=== PATIENT | male | born 1985 | race Two or more races ===

== ENCOUNTER 2018-11-06 09:38 | Emergency (ER) | payer SELFPAY ==
[~2018-11-06] VITALS: Ht 182.9 cm; Wt 90.9 kg
[2018-11-06 09:41] VITALS: BP 149/95
== END 2018-11-06 09:54 | disposition home or self-care (01) ==
LOC: ER 09:41
DX: S00.81XA Abrasion of other part of head, initial encounter (principal); Z91.19 Patient's noncompliance with other medical treatment and regimen; Y35.811A Legal intervention involving manhandling, law enforcement official injured, initial encounter; Y93.89 Activity, other specified; Y92.89 Other specified places as the place of occurrence of the external cause; Y99.8 Other external cause status
CPT/HCPCS: 99283

== ENCOUNTER 2022-03-18 07:14 | Emergency (ER) | payer MEDICAID ==
[~2022-03-18] VITALS: Ht 182.9 cm; Wt 90.9 kg
[2022-03-18 07:15] VITALS: BP 172/103
[2022-03-18] MEDS ORDERED: HYDR-3972 PO (11:50)
== END 2022-03-18 12:12 | disposition home or self-care (01) ==
LOC: ER 07:15
DX: M54.50 Low back pain, unspecified (principal)
CPT/HCPCS: 72100; 99283

== ENCOUNTER 2023-01-03 03:59 | Emergency (ER) | payer MEDICAID ==
[~2023-01-03] VITALS: Ht 182.9 cm; Wt 108.9 kg
[2023-01-03 04:05] VITALS: BP 149/107
[2023-01-03] MEDS ORDERED: azithromycin 250mg tablet PO ONE (04:35)
[2023-01-03] MEDS ORDERED: CefTRIAXone 1000mg IM Kit (w/lidocaine diluent) IM ONE (04:35)
== END 2023-01-03 04:54 | disposition home or self-care (01) ==
LOC: ER 04:00
DX: A63.8 Other specified predominantly sexually transmitted diseases (principal)
CPT/HCPCS: 96372; 99283; J0696

== ENCOUNTER 2023-04-04 01:03 | Emergency (ER) | payer MEDICAID ==
[~2023-04-04] VITALS: Ht 185.4 cm; Wt 93.2 kg
[2023-04-04 02:18] LABS: BASOPHILS # (AUTO) 0.1 X10'3 (0-0.2); BASOPHILS % (AUTO) 0.3 % (0-1); EOSINOPHILS % (AUTO) 0.3 % (0-6); HEMATOCRIT 36.9 % (42.0-52.0); HEMOGLOBIN 12.1 g/dl (14.0-17.9); LYMPHOCYTES # (AUTO) 1.7 X10'3 (1.1-4.8); LYMPHOCYTES % (AUTO) 11.2 % (21-51); MEAN CORPUSCULAR HEMOGLOBIN 26.6 PG (27.0-31.0); MEAN CORPUSCULAR HGB CONC 32.8 g/dL (33.0-36.5); MEAN CORPUSCULAR VOLUME 80.9 FL (78-98); MEAN PLATELET VOLUME 6.8 FL (7.4-10.4); MONOCYTES # (AUTO) 1.5 X10'3 (0-0.9); MONOCYTES % (AUTO) 9.9 % (2-12); NEUTROPHILS # (AUTO) 12.2 X10'3 (1.8-7.7); NEUTROPHILS % (AUTO) 78.3 % (42-75); PLATELET COUNT 318 X10'3 (140-440); RED BLOOD COUNT 4.57 X10'6 (4.70-6.10); RED CELL DISTRIBUTION WIDTH 14.3 % (11.5-14.5); WHITE BLOOD COUNT 15.6 X10'3 (4.5-11.0)
[2023-04-04 02:29] LABS: ALANINE AMINOTRANSFERASE 30 U/L (12-78); ALBUMIN 3.4 G/DL (3.4-5.0); ALBUMIN/GLOBULIN RATIO 0.7 (1.1-1.5); ALKALINE PHOSPHATASE 54 IU/L (46-116); ANION GAP 9 (8-16); ASPARTATE AMINO TRANSFERASE 16 U/L (10-37); BILIRUBIN,TOTAL 0.6 MG/DL (0.1-1.0); BLOOD UREA NITROGEN 12 MG/DL (7-18); BUN/CREATININE RATIO 9.6 (10.0-20.0); CALCIUM 8.8 MG/DL (8.5-10.1); CHLORIDE 100 MMOL/L (99-107); CREATININE 1.25 MG/DL (0.60-1.10); GLUCOSE 177 MG/DL (70-104); MAGNESIUM 1.6 MG/DL (1.5-2.4); POTASSIUM 3.6 MMOL/L (3.5-5.1); SODIUM 137 MMOL/L (135-145); TOTAL CARBON DIOXIDE 28.5 MMOL/L (24-32); eGFR 65 ML/MIN
[2023-04-04 06:46] VITALS: BP 156/89; PULSE 102; RESP 16; TEMP 99; O2SAT 99
[2023-04-05] MEDS ORDERED: NO HOME MEDS (19:06)
== END 2023-04-04 10:28 | disposition left against medical advice (07) ==
LOC: ER 01:04
DX: T24.001A Burn of unspecified degree of unspecified site of right lower limb, except ankle and foot, initial encounter (principal); R30.9 Painful micturition, unspecified; Z53.21 Procedure and treatment not carried out due to patient leaving prior to being seen by health care provider; X10.1XXA Contact with hot food, initial encounter; Y93.89 Activity, other specified; Y92.89 Other specified places as the place of occurrence of the external cause; Y99.8 Other external cause status
CPT/HCPCS: 36415; 80053; 83605; 83735; 84145; 85025; 87040; 99281

== ENCOUNTER 2023-04-05 14:47 | Inpatient (IN) | payer MEDICAID ==
[~2023-04-05] VITALS: Ht 182.9 cm; Wt 90.9 kg
[2023-04-05] MEDS ORDERED: piperacillin/tazo 3.375gm/50ml 50 ML IV ONE (15:45)
[2023-04-05 16:51] LABS: HEMOGLOBIN 11.8 g/dl (14.0-17.9)
[2023-04-05 16:52] LABS: BASOPHILS % (AUTO) 0.2 % (0-1); EOSINOPHILS # (AUTO) 0.2 X10'3 (0-0.9); HEMATOCRIT 35.8 % (42.0-52.0); LYMPHOCYTES # (AUTO) 0.8 X10'3 (1.1-4.8); LYMPHOCYTES % (AUTO) 3.9 % (21-51); MEAN CORPUSCULAR HEMOGLOBIN 26.6 PG (27.0-31.0); MEAN CORPUSCULAR HGB CONC 33.1 g/dL (33.0-36.5); MEAN CORPUSCULAR VOLUME 80.5 FL (78-98); MEAN PLATELET VOLUME 7.1 FL (7.4-10.4); MONOCYTES # (AUTO) 1.4 X10'3 (0-0.9); NEUTROPHILS # (AUTO) 17.3 X10'3 (1.8-7.7); NEUTROPHILS % (AUTO) 87.9 % (42-75); PLATELET COUNT 298 X10'3 (140-440); RED BLOOD COUNT 4.45 X10'6 (4.70-6.10); WHITE BLOOD COUNT 19.7 X10'3 (4.5-11.0)
[2023-04-05 17:00] LABS: ALANINE AMINOTRANSFERASE 49 U/L (12-78); ALBUMIN 2.8 G/DL (3.4-5.0); ALBUMIN/GLOBULIN RATIO 0.6 (1.1-1.5); ALKALINE PHOSPHATASE 98 IU/L (46-116); ANION GAP 10 (8-16); ASPARTATE AMINO TRANSFERASE 47 U/L (10-37); BILIRUBIN,TOTAL 3.2 MG/DL (0.1-1.0); BLOOD UREA NITROGEN 9 MG/DL (7-18); BUN/CREATININE RATIO 8.8 (10.0-20.0); CALCIUM 8.6 MG/DL (8.5-10.1); CHLORIDE 97 MMOL/L (99-107); CREATININE 1.02 MG/DL (0.60-1.10); GLUCOSE 138 MG/DL (70-104); MAGNESIUM 1.6 MG/DL (1.5-2.4); POTASSIUM 3.8 MMOL/L (3.5-5.1); SODIUM 133 MMOL/L (135-145); TOTAL PROTEIN 7.6 G/DL (6.4-8.2); eGFR 83 ML/MIN
[2023-04-05] MEDS ORDERED: iohexol 300mg/ml 100ml inj. ONE (17:20)
[2023-04-05 17:40] LABS: ETHANOL < 10 MG/DL (<10)
[2023-04-05] MEDS ORDERED: magnesium 2GM in 50ml NS 50 ML IV PRN (17:50)
[2023-04-05] MEDS ORDERED: acetaminophen 325mg tablet PO PRN ×2 (17:50)
[2023-04-05] MEDS ORDERED: morphine 2 MG/ML inj. syringe IV PRN ×2 (17:50)
[2023-04-05] MEDS ORDERED: HYDROcodone/acetaminophen 5mg/325mg tablet PO PRN (17:50)
[2023-04-05] MEDS ORDERED: magnesium Cl slow-release 64mg tablet PO PRN (17:50)
[2023-04-05] MEDS ORDERED: magnesium 4gm in 100ml NS 100 ML IV PRN (17:50)
[2023-04-05] MEDS ORDERED: potassium Cl 20 mEq SR tablet PO PRN ×2 (17:50)
[2023-04-05] MEDS ORDERED: potassium Cl 40MEQ/1/2NS 520ml 520 ML IV PRN (17:50)
[2023-04-05] MEDS ORDERED: magnesium hydroxide 30ml (MOM) UD suspension PO PRN (17:50)
[2023-04-05] MEDS ORDERED: ondansetron/PF 4mg/2ml inj IV PRN (17:50)
[2023-04-05] MEDS: normal saline 1000ml 1,000 ML IV SCH (18:04)
[2023-04-05 18:46] LABS: C-REACTIVE PROTEIN 27.81 MG/DL (0.0-0.5)
[2023-04-05] MEDS: VANCOmycin 1250MG/NS 250ml Bag 250 ML IV SCH (19:00)
[2023-04-05] MEDS ORDERED: NO HOME MEDS (19:06)
[2023-04-05] MEDS ORDERED: nicotine 21mg patch - 24 hr TD ONE (19:20)
[2023-04-05 19:41] LABS: URINE AMPHETAMINE SCREEN POSITIVE (Neg); URINE BARBITUATE SCREEN NEGATIVE (Neg); URINE BENZODIAZEPINES SCREEN NEGATIVE (Neg); URINE CANNABINOID SCREEN NEGATIVE (Neg); URINE COCAINE SCREEN NEGATIVE (Neg); URINE METHADONE SCREEN NEGATIVE (Neg); URINE OPIATE SCREEN NEGATIVE (Neg); URINE PHENCYCLIDINE SCREEN NEGATIVE (Neg)
[2023-04-05] MEDS: enoxaparin 40mg/0.4ml syringe SQ SCH (20:36)
[2023-04-05] MEDS ORDERED: acetaminophen 1,000mg/100ml IV 100 ML IV ONE (21:00)
--- NOTE | 2023-04-06 04:00 | NUR ---
reposition pt for comfort, gave warm blankets and a pillow, pend admit
[2023-04-06] MEDS: HYDROcodone/acetaminophen 10/325mg tab PO PRN (04:01)
[2023-04-06] MEDS: normal saline 1000ml 1,000 ML IV SCH ×3 (06:53→20:26)
[2023-04-06] MEDS: VANCOmycin 1250MG/NS 250ml Bag 250 ML IV SCH (07:47)
[2023-04-06 08:00] LABS: BASOPHILS % (AUTO) 0.1 % (0-1); EOSINOPHILS % (AUTO) 0.2 % (0-6); HEMATOCRIT 33.8 % (42.0-52.0); HEMOGLOBIN 11.2 g/dl (14.0-17.9); LYMPHOCYTES # (AUTO) 0.8 X10'3 (1.1-4.8); LYMPHOCYTES % (AUTO) 3.7 % (21-51); MEAN CORPUSCULAR HEMOGLOBIN 26.4 PG (27.0-31.0); MEAN CORPUSCULAR HGB CONC 33.1 g/dL (33.0-36.5); MEAN CORPUSCULAR VOLUME 79.7 FL (78-98); MEAN PLATELET VOLUME 7.3 FL (7.4-10.4); MONOCYTES # (AUTO) 1.3 X10'3 (0-0.9); MONOCYTES % (AUTO) 5.7 % (2-12); NEUTROPHILS # (AUTO) 20.3 X10'3 (1.8-7.7); NEUTROPHILS % (AUTO) 90.3 % (42-75); PLATELET COUNT 287 X10'3 (140-440); RED BLOOD COUNT 4.24 X10'6 (4.70-6.10); RED CELL DISTRIBUTION WIDTH 14.2 % (11.5-14.5); WHITE BLOOD COUNT 22.5 X10'3 (4.5-11.0)
[2023-04-06 08:38] LABS: ALANINE AMINOTRANSFERASE 89 U/L (12-78); ALBUMIN 2.5 G/DL (3.4-5.0); ALKALINE PHOSPHATASE 164 IU/L (46-116); ANION GAP 14 (8-16); ASPARTATE AMINO TRANSFERASE 95 U/L (10-37); BILIRUBIN,TOTAL 4.5 MG/DL (0.1-1.0); BLOOD UREA NITROGEN 12 MG/DL (7-18); BUN/CREATININE RATIO 12.1 (10.0-20.0); CALCIUM 8.1 MG/DL (8.5-10.1); CHLORIDE 102 MMOL/L (99-107); CREATININE 0.99 MG/DL (0.60-1.10); GLUCOSE 141 MG/DL (70-104); POTASSIUM 3.7 MMOL/L (3.5-5.1); SODIUM 138 MMOL/L (135-145); TOTAL CARBON DIOXIDE 22.3 MMOL/L (24-32); eGFR 86 ML/MIN
[2023-04-06 08:53] LABS: ALBUMIN/GLOBULIN RATIO 0.6 (1.1-1.5)
--- NOTE | 2023-04-06 15:22 | NUR ---
ATTEMPTED TO CALL REPORT, NURSE NOT AVAILABLE AT THIS TIME. CRN NOTIFIED.
[2023-04-06] MEDS: vancomycin/NS 1 GM ADD-VANTAGE 250 ML IV SCH ×3 (15:51→23:15)
--- NOTE | 2023-04-06 16:20 | NUR ---
Patient in room ED 12. I have received report from Brandon ZAVALA from ER and had the opportunity to ask questions and assume patient care.
--- NOTE | 2023-04-06 16:25 | NUR ---
PAGER ID: [phone] MESSAGE: [id number]-Katt Solano- patient is on day 3 of last drink. Drinks 750ML of whiskey daily. No ETOH protocol in. Pls advise? KEHINDE Rodriguez [phone]
--- NOTE | 2023-04-06 16:35 | NUR ---
Dr. Tao visited patient today once he got to the floor. Per Dr. Tao patient is able to eat clear liquids for breakfast and then NPO after that. Patient will go into surgery tomorrow late afternoon. Consent in patient chart.
--- NOTE | 2023-04-06 16:45 | NUR ---
Offered patient something to eat and patient states that he isn't hungry but will take water.
[2023-04-06] MEDS ORDERED: dextrose 50%-water 50ml dispensing syringe IV PRN (17:05)
[2023-04-06] MEDS ORDERED: haloperidol 5mg tablet PO PRN (17:05)
[2023-04-06] MEDS ORDERED: haloperidol lactate 5mg/ml inj IM PRN (17:05)
[2023-04-06] MEDS ORDERED: LORazepam 2 mg/ml vial IV PRN (17:05)
--- NOTE | 2023-04-06 17:58 | NUR ---
patient refused dinner
[2023-04-06 18:00] VITALS: BP 113/71; PULSE 85; RESP 16; TEMP 98.5; O2SAT 99
--- NOTE | 2023-04-06 18:30 | NUR ---
Patient in room ORTHO 4010. I have received report from Jennifer MCELROY and had the opportunity to ask questions and assume patient care.
--- NOTE | 2023-04-06 18:36 | NUR ---
Problems reprioritized. Patient report given, questions answered & plan of care reviewed with Sherice ZAVALA.
[2023-04-06 19:30] VITALS: RESP 16; O2SAT 99
[2023-04-06] MEDS: thiamine 100mg/ml 2ml inj. IV SCH (20:27)
[2023-04-06] MEDS: enoxaparin 40mg/0.4ml syringe SQ SCH (20:27)
[2023-04-06 22:00] VITALS: BP 124/63; PULSE 64; RESP 18; TEMP 97.9; O2SAT 98
[2023-04-07] VITALS (18 sets, daily range): BP systolic 127–148; BP diastolic 60–90; PULSE 50–82; RESP 14–25; TEMP 97.3–98.6; O2SAT 95–99
[2023-04-07] MEDS: HYDROcodone/acetaminophen 10/325mg tab PO PRN (03:11)
--- NOTE | 2023-04-07 06:50 | NUR ---
Problems reprioritized. Patient report given, questions answered & plan of care reviewed with More ZAVALA.
--- NOTE | 2023-04-07 06:51 | NUR ---
Patient in room ORTH[facility] 4010. I have received report from Sherice and had the opportunity to ask questions and assume patient care.
[2023-04-07 07:06] LABS: BASOPHILS % (AUTO) 0.1 % (0-1); EOSINOPHILS # (AUTO) 0.1 X10'3 (0-0.9); EOSINOPHILS % (AUTO) 0.6 % (0-6); HEMATOCRIT 34.9 % (42.0-52.0); HEMOGLOBIN 11.5 g/dl (14.0-17.9); LYMPHOCYTES # (AUTO) 1.7 X10'3 (1.1-4.8); LYMPHOCYTES % (AUTO) 8.6 % (21-51); MEAN CORPUSCULAR HEMOGLOBIN 26.5 PG (27.0-31.0); MEAN CORPUSCULAR VOLUME 80.1 FL (78-98); MEAN PLATELET VOLUME 7.6 FL (7.4-10.4); MONOCYTES # (AUTO) 1.2 X10'3 (0-0.9); MONOCYTES % (AUTO) 6.1 % (2-12); NEUTROPHILS # (AUTO) 16.2 X10'3 (1.8-7.7); NEUTROPHILS % (AUTO) 84.6 % (42-75); PLATELET COUNT 342 X10'3 (140-440); RED BLOOD COUNT 4.35 X10'6 (4.70-6.10); RED CELL DISTRIBUTION WIDTH 14.5 % (11.5-14.5); WHITE BLOOD COUNT 19.2 X10'3 (4.5-11.0)
[2023-04-07] MEDS: thiamine 100mg/ml 2ml inj. IV SCH ×3 (07:16→22:00)
[2023-04-07] MEDS: folic acid 1mg/0.2ml inj IV SCH (07:16)
[2023-04-07] MEDS: vancomycin/NS 1 GM ADD-VANTAGE 250 ML IV SCH (07:49)
[2023-04-07 07:50] LABS: ALANINE AMINOTRANSFERASE 177 U/L (12-78); ALBUMIN 2.4 G/DL (3.4-5.0); ALBUMIN/GLOBULIN RATIO 0.5 (1.1-1.5); ALKALINE PHOSPHATASE 221 IU/L (46-116); ANION GAP 14 (8-16); ASPARTATE AMINO TRANSFERASE 202 U/L (10-37); BILIRUBIN,TOTAL 4.1 MG/DL (0.1-1.0); BLOOD UREA NITROGEN 15 MG/DL (7-18); BUN/CREATININE RATIO 16.1 (10.0-20.0); CALCIUM 8.7 MG/DL (8.5-10.1); CHLORIDE 103 MMOL/L (99-107); CREATININE 0.93 MG/DL (0.60-1.10); GLUCOSE 96 MG/DL (70-104); POTASSIUM 3.5 MMOL/L (3.5-5.1); SODIUM 138 MMOL/L (135-145); TOTAL PROTEIN 7.3 G/DL (6.4-8.2); eGFR > 90 ML/MIN
[2023-04-07] MEDS: linezolid 600mg tablet PO SCH ×2 (13:17→19:38)
[2023-04-07] MEDS ORDERED: VANCOMYCIN LEVEL IV ONE (14:30)
[2023-04-07] MEDS: cefazolin 2gm/D5W 100mL 100 ML IV SCH (16:15)
--- NOTE | 2023-04-07 17:28 | NUR ---
Pt to OR
[2023-04-07] MEDS ORDERED: fentaNYL/PF 50MCG/1 ML 2ML syringe ONE (17:51)
[2023-04-07] MEDS ORDERED: propofol inj 20 ML IV ONE (17:51)
[2023-04-07] MEDS ORDERED: midazolam 1 mg/ML 2ml injection ONE (17:51)
--- NOTE | 2023-04-07 17:57 | NUR ---
Patient at bedside with Dr. Hannon and OR nurse. RN performed time-out. VSS. OR tech prep site and no s/s of distress at this time. Will keep monitoring.
--- NOTE | 2023-04-07 18:09 | NUR ---
Received report given by Riddhi Anesthesiologist. PATIENT A&OX4, DENIES PAIN, V/S WNL, PIV 18G Right AC, RIGHT LOWER LEG DRESSING C/D/I. Addendum: 04/07/23 at 1823 by Ron Yee RN Amended: Links added.
[2023-04-07] MEDS ORDERED: meperidine/PF 25mg/ml syringe IV PRN ×2 (18:20)
[2023-04-07] MEDS ORDERED: morphine 2 MG/ML inj. syringe IV PRN (18:20)
[2023-04-07] MEDS ORDERED: morphine 4 MG/ML inj SYRINge IV PRN (18:20)
--- NOTE | 2023-04-07 18:33 | NUR ---
Problems reprioritized. Patient report given, questions answered & plan of care reviewed with
--- NOTE | 2023-04-07 18:49 | NUR ---
PATIENT HAS MET ALL CRITERIA FOR TRANSFER TO ORTHO FLOOR. VSS. DRESSINGS INTACT. BED LOW, CALL LIGHT PRESENT AND 2 RAILS UP. RN PRESENT TO ACCEPT CARE OF PATIENT AND REPORT HAS BEEN CALLED. ALL QUESTIONS ANSWERED TO ACCEPTING RN. Addendum: 04/07/23 at 1855 by Ron Yee RN Amended: Links added.
[2023-04-07] MEDS: enoxaparin 40mg/0.4ml syringe SQ SCH (19:39)
[2023-04-07] MEDS: normal saline 1000ml 1,000 ML IV SCH (20:30)
[2023-04-08] VITALS (7 sets, daily range): BP systolic 137–171; BP diastolic 65–82; PULSE 41–65; RESP 16–18; TEMP 98–98.9; O2SAT 96–100
[2023-04-08] MEDS: cefazolin 2gm/D5W 100mL 100 ML IV SCH ×3 (00:31→16:47)
[2023-04-08] MEDS: normal saline 1000ml 1,000 ML IV SCH ×3 (00:32→16:46)
--- NOTE | 2023-04-08 06:10 | NUR ---
Patient in room ORTHO 4010. I have received report from Esme and had the opportunity to ask questions and assume patient care.
--- NOTE | 2023-04-08 06:40 | NUR ---
Problems reprioritized. Patient report given, questions answered & plan of care reviewed with MODESTO ZAVALA.
[2023-04-08 07:10] LABS: BASOPHILS # (AUTO) 0.1 X10'3 (0-0.2); BASOPHILS % (AUTO) 0.4 % (0-1); EOSINOPHILS # (AUTO) 0.3 X10'3 (0-0.9); EOSINOPHILS % (AUTO) 1.8 % (0-6); HEMATOCRIT 32.2 % (42.0-52.0); HEMOGLOBIN 10.6 g/dl (14.0-17.9); LYMPHOCYTES # (AUTO) 3.1 X10'3 (1.1-4.8); LYMPHOCYTES % (AUTO) 18.6 % (21-51); MEAN CORPUSCULAR HEMOGLOBIN 26.3 PG (27.0-31.0); MEAN CORPUSCULAR HGB CONC 32.8 g/dL (33.0-36.5); MEAN CORPUSCULAR VOLUME 80.2 FL (78-98); MEAN PLATELET VOLUME 7.7 FL (7.4-10.4); MONOCYTES # (AUTO) 1.3 X10'3 (0-0.9); MONOCYTES % (AUTO) 7.7 % (2-12); NEUTROPHILS # (AUTO) 11.9 X10'3 (1.8-7.7); NEUTROPHILS % (AUTO) 71.5 % (42-75); PLATELET COUNT 351 X10'3 (140-440); RED BLOOD COUNT 4.02 X10'6 (4.70-6.10); RED CELL DISTRIBUTION WIDTH 14.4 % (11.5-14.5); WHITE BLOOD COUNT 16.7 X10'3 (4.5-11.0)
[2023-04-08 07:36] LABS: ALANINE AMINOTRANSFERASE 186 U/L (12-78); ALBUMIN 2.1 G/DL (3.4-5.0); ALBUMIN/GLOBULIN RATIO 0.4 (1.1-1.5); ALKALINE PHOSPHATASE 224 IU/L (46-116); ANION GAP 14 (8-16); ASPARTATE AMINO TRANSFERASE 140 U/L (10-37); BILIRUBIN,TOTAL 2.5 MG/DL (0.1-1.0); BLOOD UREA NITROGEN 18 MG/DL (7-18); BUN/CREATININE RATIO 16.5 (10.0-20.0); CALCIUM 8.1 MG/DL (8.5-10.1); CHLORIDE 104 MMOL/L (99-107); CREATININE 1.09 MG/DL (0.60-1.10); GLUCOSE 101 MG/DL (70-104); POTASSIUM 3.4 MMOL/L (3.5-5.1); SODIUM 139 MMOL/L (135-145); TOTAL CARBON DIOXIDE 20.7 MMOL/L (24-32); TOTAL PROTEIN 6.8 G/DL (6.4-8.2); eGFR 77 ML/MIN
[2023-04-08] MEDS: linezolid 600mg tablet PO SCH ×2 (09:00→19:47)
[2023-04-08] MEDS: thiamine 100mg/ml 2ml inj. IV SCH ×3 (09:00→22:25)
[2023-04-08] MEDS: folic acid 1mg/0.2ml inj IV SCH (09:00)
--- NOTE | 2023-04-08 14:40 | NUR ---
Zyvox consult: Pt admit DX RLE cellulitis s/p 2cm abscess I&D and sepsis positive for fentanyl and meth on admit per EMR. Receiving routine thiamine and folic acid hx beers every other day per EMR. Pt started on zyvox per EMR; pt seen by RD at bedside for written/verbal low-tyramine diet ed w/ RD contact information provided. Pt denies nutrition concerns this admit. RD encouraged pt to contact dietitian's office if nutrition questions/concerns. PO 0% first two regular diet meals though sleeping mostly this AM in EMR w/ PO 100% lunch today. LBM 04/05. Will monitor for further PO trends and nutrition intervention needs. Rec: 1. continue regular diet; encourage PO 2. monitor PO trends for ONS needs 3. routine bowel care 4. scaled wt this admit; subsequent weekly wt Addendum: 04/08/23 at [address] Amended: Links added.
[2023-04-08] MEDS ORDERED: LORazepam 2 mg/ml vial IV PRN (17:05)
[2023-04-08] MEDS ORDERED: LORazepam 1 MG tablet PO PRN (17:05)
--- NOTE | 2023-04-08 18:34 | NUR ---
Problems reprioritized. Patient report given, questions answered & plan of care reviewed with
[2023-04-08] MEDS: enoxaparin 40mg/0.4ml syringe SQ SCH (19:47)
[2023-04-08] MEDS: HYDROcodone/acetaminophen 10/325mg tab PO PRN (19:51)
[2023-04-09] MEDS: cefazolin 2gm/D5W 100mL 100 ML IV SCH ×3 (00:12→17:02)
[2023-04-09] MEDS: normal saline 1000ml 1,000 ML IV SCH ×2 (01:50→11:50)
[2023-04-09 06:00] VITALS: BP 150/74; PULSE 96; RESP 17; TEMP 97.2; O2SAT 98
--- NOTE | 2023-04-09 06:42 | NUR ---
Problems reprioritized. Patient report given, questions answered & plan of care reviewed with LAURA MCELROY.
[2023-04-09] MEDS: thiamine 100mg/ml 2ml inj. IV SCH ×2 (07:20→17:01)
[2023-04-09 07:50] LABS: BASOPHILS # (AUTO) 0.1 X10'3 (0-0.2); BASOPHILS % (AUTO) 0.7 % (0-1); EOSINOPHILS # (AUTO) 0.3 X10'3 (0-0.9); HEMATOCRIT 32.5 % (42.0-52.0); HEMOGLOBIN 10.6 g/dl (14.0-17.9); LYMPHOCYTES % (AUTO) 19.4 % (21-51); MEAN CORPUSCULAR HEMOGLOBIN 26.4 PG (27.0-31.0); MEAN CORPUSCULAR HGB CONC 32.6 g/dL (33.0-36.5); MEAN CORPUSCULAR VOLUME 81.1 FL (78-98); MEAN PLATELET VOLUME 7.7 FL (7.4-10.4); MONOCYTES # (AUTO) 1.6 X10'3 (0-0.9); MONOCYTES % (AUTO) 10.2 % (2-12); NEUTROPHILS # (AUTO) 10.6 X10'3 (1.8-7.7); NEUTROPHILS % (AUTO) 67.7 % (42-75); PLATELET COUNT 393 X10'3 (140-440); RED BLOOD COUNT 4.01 X10'6 (4.70-6.10); RED CELL DISTRIBUTION WIDTH 14.7 % (11.5-14.5); WHITE BLOOD COUNT 15.6 X10'3 (4.5-11.0)
[2023-04-09 07:56] LABS: ALANINE AMINOTRANSFERASE 109 U/L (12-78); ALBUMIN 2.1 G/DL (3.4-5.0); ALBUMIN/GLOBULIN RATIO 0.5 (1.1-1.5); ALKALINE PHOSPHATASE 181 IU/L (46-116); ANION GAP 11 (8-16); ASPARTATE AMINO TRANSFERASE 52 U/L (10-37); BILIRUBIN,TOTAL 1.2 MG/DL (0.1-1.0); BLOOD UREA NITROGEN 14 MG/DL (7-18); BUN/CREATININE RATIO 13.3 (10.0-20.0); CALCIUM 8.1 MG/DL (8.5-10.1); CHLORIDE 107 MMOL/L (99-107); CREATININE 1.05 MG/DL (0.60-1.10); GLUCOSE 103 MG/DL (70-104); POTASSIUM 3.5 MMOL/L (3.5-5.1); SODIUM 141 MMOL/L (135-145); TOTAL CARBON DIOXIDE 22.9 MMOL/L (24-32); TOTAL PROTEIN 6.5 G/DL (6.4-8.2); eGFR 80 ML/MIN
[2023-04-09] MEDS: linezolid 600mg tablet PO SCH ×2 (08:00→20:04)
[2023-04-09 08:45] LABS: TOTAL CELLS COUNTED 100
[2023-04-09 08:46] LABS: ELLIPTOCYTES FEW; PLATELET ESTIMATE NORMAL; POLYCHROMASIA FEW; STOMATOCYTES FEW; TEAR DROP CELLS 1+
[2023-04-09] MEDS: folic acid 1mg/0.2ml inj IV SCH (09:58)
[2023-04-09 11:00] VITALS: BP 163/70; PULSE 96; RESP 17; TEMP 97.3; O2SAT 96
[2023-04-09 18:00] VITALS: BP 142/77; PULSE 53; RESP 14; TEMP 98.6; O2SAT 96
[2023-04-09 20:00] VITALS: RESP 14; O2SAT 96
[2023-04-09] MEDS: enoxaparin 40mg/0.4ml syringe SQ SCH (20:04)
[2023-04-09] MEDS: HYDROcodone/acetaminophen 10/325mg tab PO PRN (20:10)
[2023-04-09 22:00] VITALS: BP 119/49; PULSE 51; RESP 18; TEMP 99.1; O2SAT 97
[2023-04-10] MEDS: cefazolin 2gm/D5W 100mL 100 ML IV SCH ×2 (00:10→09:39)
[2023-04-10] MEDS: normal saline 1000ml 1,000 ML IV SCH ×2 (02:28→07:50)
[2023-04-10 06:00] VITALS: BP 139/75; PULSE 67; RESP 18; TEMP 98.6; O2SAT 96
[2023-04-10 06:07] LABS: BASOPHILS # (AUTO) 0.1 X10'3 (0-0.2); BASOPHILS % (AUTO) 0.7 % (0-1); EOSINOPHILS # (AUTO) 0.4 X10'3 (0-0.9); EOSINOPHILS % (AUTO) 2.8 % (0-6); HEMATOCRIT 32.1 % (42.0-52.0); HEMOGLOBIN 10.7 g/dl (14.0-17.9); LYMPHOCYTES % (AUTO) 20.7 % (21-51); MEAN CORPUSCULAR HEMOGLOBIN 26.6 PG (27.0-31.0); MEAN CORPUSCULAR HGB CONC 33.3 g/dL (33.0-36.5); MEAN PLATELET VOLUME 7.7 FL (7.4-10.4); MONOCYTES # (AUTO) 1.5 X10'3 (0-0.9); MONOCYTES % (AUTO) 10.2 % (2-12); NEUTROPHILS # (AUTO) 9.6 X10'3 (1.8-7.7); NEUTROPHILS % (AUTO) 65.6 % (42-75); PLATELET COUNT 433 X10'3 (140-440); RED BLOOD COUNT 4.01 X10'6 (4.70-6.10); RED CELL DISTRIBUTION WIDTH 14.5 % (11.5-14.5); WHITE BLOOD COUNT 14.6 X10'3 (4.5-11.0)
[2023-04-10 06:19] LABS: ALANINE AMINOTRANSFERASE 69 U/L (12-78); ALBUMIN 2.1 G/DL (3.4-5.0); ALBUMIN/GLOBULIN RATIO 0.5 (1.1-1.5); ALKALINE PHOSPHATASE 149 IU/L (46-116); ANION GAP 9 (8-16); ASPARTATE AMINO TRANSFERASE 31 U/L (10-37); BLOOD UREA NITROGEN 8 MG/DL (7-18); BUN/CREATININE RATIO 8.6 (10.0-20.0); CHLORIDE 106 MMOL/L (99-107); CREATININE 0.93 MG/DL (0.60-1.10); GLUCOSE 97 MG/DL (70-104); POTASSIUM 3.2 MMOL/L (3.5-5.1); SODIUM 140 MMOL/L (135-145); TOTAL CARBON DIOXIDE 24.7 MMOL/L (24-32); TOTAL PROTEIN 6.5 G/DL (6.4-8.2); eGFR > 90 ML/MIN
--- NOTE | 2023-04-10 06:25 | NUR ---
Problems reprioritized. Patient report given, questions answered & plan of care reviewed with AUGUSTUS ZAVALA.
[2023-04-10 08:58] LABS: NUCLEATED RED BLOOD CELLS 1 /100WBC (0-0); TOTAL CELLS COUNTED 100
[2023-04-10 08:59] LABS: PLATELET ESTIMATE NORMAL; POLYCHROMASIA FEW
[2023-04-10 09:00] LABS: ELLIPTOCYTES 1+; HYPOCHROMASIA 1+
[2023-04-10] MEDS: linezolid 600mg tablet PO SCH (09:39)
[2023-04-10 09:44] VITALS: RESP 18
[2023-04-10 10:00] VITALS: BP 141/84; PULSE 61; RESP 16; TEMP 97.6; O2SAT 95
[2023-04-10] MEDS ORDERED: AMOX500C2 PO (12:13)
--- NOTE | 2023-04-10 16:59 | NUR ---
gauze & sundar wrap given to patient. Advised to elevate leg to relieve edema.
[2023-04-10] MEDS ORDERED: LORazepam 1 MG tablet PO PRN (17:05)
[2023-04-10] MEDS ORDERED: LORazepam 2 mg/ml vial IV PRN (17:05)
[2023-04-11] MEDS ORDERED: thiamine 100mg tablet PO SCH (08:00)
[2023-04-11] MEDS ORDERED: folic acid 1mg tablet PO SCH (08:00)
== END 2023-04-10 16:45 | disposition home or self-care (01) | DRG 720 ==
LOC: ER 14:48 → ED HOLD 17:53 → ORTHO 4S 04-06 16:40
PROVIDERS: ADMIT Internal Medicine; ATTEND Internal Medicine
PROC: 0Y9H0ZZ Drainage of Right Lower Leg, Open Approach (ICD-10-PCS; principal; 2023-04-07 17:52)
DX: A41.9 Sepsis, unspecified organism (principal); K65.1 Peritoneal abscess; M60.061 Infective myositis, right lower leg; F17.210 Nicotine dependence, cigarettes, uncomplicated; B95.0 Streptococcus, group A, as the cause of diseases classified elsewhere; E87.6 Hypokalemia; M72.8 Other fibroblastic disorders; D64.9 Anemia, unspecified; F19.10 Other psychoactive substance abuse, uncomplicated; X08.8XXA Exposure to other specified smoke, fire and flames, initial encounter; L02.415 Cutaneous abscess of right lower limb; L03.115 Cellulitis of right lower limb; T24.031A Burn of unspecified degree of right lower leg, initial encounter; Z71.6 Tobacco abuse counseling; Y93.89 Activity, other specified; Y92.89 Other specified places as the place of occurrence of the external cause; Y99.8 Other external cause status
CPT/HCPCS: 36415; 71045; 73701; 80053; 80305; 80320; 82948; 83605; 83735; 84145; 85007; 85025; 85610; 85651; 86140; 87040; 87070; 87077; 87081; 87186; 93005; 93971; 99285; A4615; A4620; A6223; A6250; A6253; A6258; A6266; A6402; A6446; A6449; G0378; J0131; J0690; J1650; J2175; J2250; J2270; J2543; J2704; J3010; J3370; J3411; J3490; J7030; Q9967